=== PATIENT | female | born 1965 | race Caucasian/White ===

== ENCOUNTER 2017-09-10 04:08 | Inpatient (IN) | payer MEDICAID ==
[~2017-09-10] VITALS: Ht 152.4 cm; Wt 64.5 kg
[2017-09-10] VITALS (12 sets, daily range): BP systolic 109–128; BP diastolic 45–82
[2017-09-10] MEDS ORDERED: GLUCOPHAGE500 MG PO (04:26)
[2017-09-10] MEDS ORDERED: LISINOPRIL10 MG PO (04:26)
[2017-09-10] MEDS ORDERED: HYDROCODONE-APA1 TAB PO (04:27)
[2017-09-10] MEDS ORDERED: ROBAXIN500 MG PO (04:27)
[2017-09-10] MEDS ORDERED: AMBIEN10 MG PO (04:28)
[2017-09-10 05:13] LABS: HEMATOCRIT 40.3 % (36.0-48.0); HEMOGLOBIN 13.4 g/dL (12-16); MCH 31.8 pg (26.0-34.0); MCHC 33.3 g/dL (31.0-37.0); MCV 95.7 fL (80.0-100.0); MEAN PLATELET VOLUME 10.4 fL (7.4-10.4); PLATELET COUNT 222 10x3/uL (130-400); RBC 4.21 10x6/uL (4.00-5.40); RDW 12.5 % (11.5-14.5); WBC 21.3 10x3/uL (4.8-10.8)
[2017-09-10 05:53] LABS: LYMPHOCYTES 15 % (15-50); MONOCYTES 6 % (2-11); NEUTROPHILS 77 % (40-80); PLATELET ESTIMATE NORMAL
[2017-09-10 05:56] LABS: ALBUMIN 3.6 g/dL (3.4-5.0); ALKALINE PHOSPHATASE 59 U/L (46-116); ALT (SGPT) 60 U/L (10-68); BILIRUBIN - TOTAL 0.37 mg/dL (0.2-1.3); CALC OSMOLALITY 277 mosm/kg (275-300); CALCIUM 8.8 mg/dL (8.5-10.1); CARBON DIOXIDE 26.3 mmol/L (21.0-32.0); CHLORIDE - SERUM 102 mmol/L (98-107); CREATININE - SERUM 0.8 mg/dL (0.6-1.3); GLUCOSE 109 mg/dL (74-106); POTASSIUM - SERUM 3.8 mmol/L (3.5-5.1); PROTEIN - SERUM 7.5 g/dL (6.4-8.2); SODIUM 138 mmol/L (136-145); UREA NITROGEN 16 mg/dL (7-18); eGFR NON AFRICAN AMERICAN 79 mL/min (90-120)
[2017-09-10 06:09] LABS: C-REACTIVE PROTEIN 12.1 mg/dL (0.0-0.9); CKMB 0.6 U/L (0.0-3.6); CREATINE KINASE 108 UL (21-215); TROPONIN-I < 0.017 ng/mL (0.000-0.060)
[2017-09-11] VITALS (7 sets, daily range): BP systolic 92–132; BP diastolic 49–60; Ht 152.4 cm; Wt 64.5 kg
[2017-09-11 04:41] LABS: BASOPHILS 0.1 % (0-2); EOSINOPHILS 0 % (0-7); HEMATOCRIT 33.7 % (36.0-48.0); HEMOGLOBIN 11.4 g/dL (12-16); IMMATURE GRANULOCYTES 0.3 % (0-5); LYMPHOCYTES 8.8 % (15-50); MCHC 33.8 g/dL (31.0-37.0); MCV 94.7 fL (80.0-100.0); MEAN PLATELET VOLUME 10.2 fL (7.4-10.4); MONOCYTES 10.1 % (2-11); NEUTROPHILS 80.7 % (40-80); PLATELET COUNT 181 10x3/uL (130-400); RBC 3.56 10x6/uL (4.00-5.40); RDW 12.7 % (11.5-14.5); WBC 14.6 10x3/uL (4.8-10.8)
[2017-09-11 04:59] LABS: ANION GAP 13.2 mmol/L (8-16); CALCIUM 8.2 mg/dL (8.5-10.1); CARBON DIOXIDE 23.3 mmol/L (21.0-32.0); CREATININE - SERUM 0.9 mg/dL (0.6-1.3); POTASSIUM - SERUM 3.5 mmol/L (3.5-5.1)
[2017-09-12] VITALS (7 sets, daily range): BP systolic 96–125; BP diastolic 44–67
[2017-09-12 05:47] LABS: BASOPHILS 0.1 % (0-2); EOSINOPHILS 0.3 % (0-7); HEMATOCRIT 31.6 % (36.0-48.0); HEMOGLOBIN 10.3 g/dL (12-16); IMMATURE GRANULOCYTES 0.3 % (0-5); LYMPHOCYTES 8.8 % (15-50); MCH 30.8 pg (26.0-34.0); MCHC 32.6 g/dL (31.0-37.0); MCV 94.6 fL (80.0-100.0); MEAN PLATELET VOLUME 10.7 fL (7.4-10.4); MONOCYTES 9.9 % (2-11); NEUTROPHILS 80.6 % (40-80); PLATELET COUNT 184 10x3/uL (130-400); RBC 3.34 10x6/uL (4.00-5.40); RDW 12.9 % (11.5-14.5); WBC 11.9 10x3/uL (4.8-10.8)
[2017-09-12 06:17] LABS: CALC OSMOLALITY 273 mosm/kg (275-300); CALCIUM 8.3 mg/dL (8.5-10.1); CARBON DIOXIDE 24.5 mmol/L (21.0-32.0); CHLORIDE - SERUM 106 mmol/L (98-107); CREATININE - SERUM 0.8 mg/dL (0.6-1.3); GLUCOSE 101 mg/dL (74-106); SODIUM 138 mmol/L (136-145); UREA NITROGEN 7 mg/dL (7-18); eGFR NON AFRICAN AMERICAN 79 mL/min (90-120)
[2017-09-13 05:39] LABS: BASOPHILS 0.2 % (0-2); EOSINOPHILS 0.6 % (0-7); HEMATOCRIT 29.4 % (36.0-48.0); HEMOGLOBIN 9.7 g/dL (12-16); IMMATURE GRANULOCYTES 0.4 % (0-5); LYMPHOCYTES 12.3 % (15-50); MCH 30.6 pg (26.0-34.0); MCV 92.7 fL (80.0-100.0); MEAN PLATELET VOLUME 10.2 fL (7.4-10.4); NEUTROPHILS 74.5 % (40-80); PLATELET COUNT 215 10x3/uL (130-400); RBC 3.17 10x6/uL (4.00-5.40); RDW 12.9 % (11.5-14.5); WBC 9.6 10x3/uL (4.8-10.8)
[2017-09-13 05:47] LABS: CALC OSMOLALITY 279 mosm/kg (275-300); CALCIUM 8.1 mg/dL (8.5-10.1); CARBON DIOXIDE 26.7 mmol/L (21.0-32.0); CHLORIDE - SERUM 108 mmol/L (98-107); CREATININE - SERUM 0.8 mg/dL (0.6-1.3); GLUCOSE 108 mg/dL (74-106); POTASSIUM - SERUM 3.5 mmol/L (3.5-5.1); SODIUM 141 mmol/L (136-145); UREA NITROGEN 6 mg/dL (7-18); eGFR NON AFRICAN AMERICAN 79 mL/min (90-120)
[2017-09-13 05:54] VITALS: BP 120/66
[2017-09-13 09:20] VITALS: BP 117/62
[2017-09-13] MEDS ORDERED: LEVAQUIN750 MG PO (13:08)
[2017-09-13 14:38] VITALS: BP 100/53
[2017-09-13 17:07] VITALS: BP 126/84
== END 2017-09-13 19:27 | disposition home or self-care (01) | DRG 193 ==
LOC: D.ER 04:08 → D.MS 07:15 → D.EDHOLD 07:15 → D.MS 19:45
PROVIDERS: Family Medicine; Internal Medicine Nephrology
DX: J18.9 Pneumonia, unspecified organism (principal); J96.01 Acute respiratory failure with hypoxia; J44.0 Chronic obstructive pulmonary disease with (acute) lower respiratory infection; J44.1 Chronic obstructive pulmonary disease with (acute) exacerbation; F17.293 Nicotine dependence, other tobacco product, with withdrawal; I10 Essential (primary) hypertension; E11.9 Type 2 diabetes mellitus without complications; Z79.84 Long term (current) use of oral hypoglycemic drugs

== ENCOUNTER 2017-09-23 08:00 | Outpatient (CLI) | payer MEDICAID ==
[2017-09-11 00:22] VITALS: BMI 28.3
[~2017-09-23 08:00] MED LIST: AMBIEN10 MG PO; GLUCOPHAGE500 MG PO; HYDROCODONE-APA1 TAB PO; LEVAQUIN750 MG PO; LISINOPRIL10 MG PO; ROBAXIN500 MG PO
== END 2017-09-23 09:00 | disposition home or self-care (01) ==
LOC: D.MAMMO 08:00
DX: Z12.31 Encounter for screening mammogram for malignant neoplasm of breast (principal)

== ENCOUNTER → 2017-11-19 20:34 | Outpatient (CLI) | payer MEDICAID ==
[2017-09-11 00:22] VITALS: BMI 28.3
== END | disposition home or self-care (01) ==
LOC: D.MAMMO 10-29 08:30
DX: R92.8 Other abnormal and inconclusive findings on diagnostic imaging of breast (principal)

== ENCOUNTER → 2017-12-17 10:35 | Outpatient (CLI) | payer MEDICAID ==
[2017-09-11 00:22] VITALS: BMI 28.3
== END | disposition home or self-care (01) ==
LOC: D.MRI 10:30
DX: M54.16 Radiculopathy, lumbar region (principal)

== ENCOUNTER → 2019-09-11 14:45 | Outpatient (CLI) | payer MEDICAID ==
[2017-09-11 00:22] VITALS: BMI 28.3
== END | disposition home or self-care (01) ==
LOC: D.MRI 14:45
PROVIDERS: ATTEND Family Medicine
DX: M54.5 Low back pain (principal)

== ENCOUNTER → 2020-05-26 18:10 | Outpatient (CLI) | payer MEDICAID ==
[2017-09-11 00:22] VITALS: BMI 28.3
== END | disposition home or self-care (01) ==
LOC: D.LABREF 18:10
PROVIDERS: ATTEND Orthopaedic Surgery
DX: M16.11 Unilateral primary osteoarthritis, right hip (principal)